=== PATIENT | male | born 1960 | race Caucasian/White ===

== ENCOUNTER 2019-07-25 20:00 | Outpatient (CLI) | payer MEDICARE, SELFPAY | END 2019-07-25 20:01 | disposition home or self-care (01) | LOC: SLEEP 07-26 11:54 | PROVIDERS: Visit Provider Nurse Practitioner Family | DX: G47.10 Hypersomnia, unspecified (principal); G47.33 Obstructive sleep apnea (adult) (pediatric); R09.02 Hypoxemia | CPT/HCPCS: 95810 ==

== ENCOUNTER 2019-09-05 20:00 | Outpatient (CLI) | payer MEDICARE, SELFPAY | END 2019-09-05 20:01 | disposition home or self-care (01) | LOC: SLEEP 09-06 09:02 | PROVIDERS: Visit Provider Nurse Practitioner Family | DX: G47.33 Obstructive sleep apnea (adult) (pediatric) (principal) | CPT/HCPCS: 95810; 95811 ==

== ENCOUNTER 2020-09-19 09:49 | Outpatient (CLI) | payer MEDICARE, SELFPAY ==
[2020-09-19 10:22] LABS: Basophils # 0.1 10^3/uL (0.0-0.1); Basophils % 0.6 %; Eosinophils # 0.1 10^3/uL (0.0-0.8); Eosinophils % 1.5 %; Hematocrit 50.8 % (42.0-52.0); Hemoglobin 17.3 g/dL (11.7-16.6); Lymphocytes # 2.7 10^3/uL (0.8-4.8); Mean Corpuscular HGB Conc 34.1 g/dL (30.0-36.0); Mean Corpuscular Hemoglobin 31.9 pg (28.0-34.0); Mean Corpuscular Volume 93.6 fL (80-94); Monocytes # 0.6 10^3/uL (0.2-0.9); Monocytes % 6.7 %; Neutrophils # 4.74 10^3/uL (1.8-7.7); Neutrophils % 57.8 %; Nucleated Red Blood Cells % 0 %; Platelet Count 218 10^3/cmm (130-400); Red Blood Count 5.43 10^6/uL (4.1-5.3); Red Cell Distribution Width 12.7 % (12.1-15.1); White Blood Count 8.2 10^3/uL (4.0-10.0)
[2020-09-19 10:41] LABS: INR 1.02 (0.8-1.2)
[2020-09-19 10:50] LABS: Blood Urea Nitrogen 14 mg/dL (8-23); Carbon Dioxide 25 mmol/L (22-29); Chloride 102 mmol/L (98-107); Glucose 254 mg/dL (65-115); Osmolality Calculated 293 mOsm/kg (285-295); Sodium 137 mmol/L (136-145)
== END 2020-09-19 09:50 | disposition home or self-care (01) ==
LOC: LAB 09:58
PROVIDERS: Visit Provider Internal Medicine
DX: R07.9 Chest pain, unspecified (principal); I25.10 Atherosclerotic heart disease of native coronary artery without angina pectoris
CPT/HCPCS: 36415; 80048; 85025; 85610; 87635

== ENCOUNTER 2020-09-25 07:12 | Day surgery (SDC) | payer MEDICARE, SELFPAY ==
[2020-09-25] VITALS (31 sets, daily range): BP systolic 115–168; BP diastolic 80–116; PULSE 62–87; RESP 13–33; TEMP 36.3–36.8; O2SAT 89–98; BMI 38.2
[2020-09-25] MEDS: diphenhydrAMINE 50 mg Capsule PO (07:20)
--- NOTE | 2020-09-25 07:30 | XACV_ITS ---
Exam Room: [facility] Ht: 168 cm Wt: 108 kg BSA: 2.29 m2 Gender: Male : 1960 Any Known Allergies: No known allergies Exam Priority: Routine Procedure(s): Procedure Description: Diagnostic procedure Procedure Description: PCI procedure Procedure Description: Left Heart Catheterization Procedure Description: Drug Eluting Coronary Stent Procedure Description: PTCA Diagnostic Cath Status: Elective Diagnostic Findings * LM has minor luminal irregularities. * RCA has patent stent, no significant stenosis. * Proximal LAD has a ONLINE MARKETER. pLAD to mLAD: Severe 100% stenosis, ALEXANDR: 0 flow. * Left circumflex artery is a large vessel. It has a proximal vessel , severe 70% stenosis. In the mid to distal LCx , there is a severe 80-90% stenosis. Proximal Circumflex Coronary Artery: Moderate 70% stenosis, ALEXANDR: 3 flow. * Ramus is a large sized vessel. It has a mid vessel 85% stenosis. In one of the branches of the ramus artery, distally there is a 80% stenosis. Ramus: Severe 85% stenosis, ALEXANDR: 3 flow. * Mid Circumflex Coronary Artery to Distal Circumflex Coronary Artery: Severe 90% stenosis, ALEXANDR: 3 flow. * Distal Circumflex Coronary Artery: Severe 90% stenosis, ALEXANDR: 3 flow. * Coronary angiography shows co-dominance. PCI Status: Elective PCI Indication: Staged PCI Interventional Findings * Procedure detail: We engaged left main artery using XB 3.5 guide catheter. IV heparin was used to maintain an ACT above 250 seconds. A 0.014 run-through guidewire was used to cross the left circumflex artery stenosis. Distal LCx lesion was balloon uncrossable. We performed predilation in the mid LCx with a 2.5 [id number] balloon. Same balloon was used to predilate the proximal LCx lesion. We then placed a 3.5x12mm resolute bridgette GONSALO in the proximal LCx. We then used guideliner to have more support and were able to cross the distal LCx lesion with a 1.41k47ny semi-compliant balloon. This was followed by dilation with a 2.00 semi compliant balloon. We then placed 2.5x30mm resolute bridgette stent in the mid to distal LCx. We then turned our attention to mid Ramus artery. We predilated the stenosis with 2.25 x 8 mm semicompliant balloon. This was followed by placement of 2.25 x 18 mm resolute [place] drug-eluting stent. Distal ramus artery was left for medical therapy. Brief attempt was made to revascularize the LAD ONLINE MARKETER, however patient had significant contrast load and we aborted the procedure to perform as a staged procedure later. At this time final angiogram was performed that showed excellent stent expansion, no residual stenosis and ALEXANDR-3 flow. Guidewire and guide catheter were removed. Hemostasis was obtained with TR band. Patient left the Overnight Stocker in a stable condition. * Proximal Circumflex Coronary Artery: 70% stenosis treated with AB TREK 2.50X12 RX BALLOON and MDT R BRIDGETTE 3.5X12 GONSALO. 0% residual stenosis, ALEXANDR: 3 flow. * Mid Circumflex Coronary Artery to Distal Circumflex Coronary Artery: 90% stenosis treated with Drug Eluting Stent. 0% residual stenosis, ALEXANDR: 3 flow. * Distal Circumflex Coronary Artery: 90% stenosis treated with AB MINI TREK 2.00X12 RX BALLOON, two AB MINI TREK 1.20X12 RX BALLOON, and MDT R BRIDGETTE 2.5X30 GONSALO. 0% residual stenosis, ALEXANDR: 3 flow. * Ramus: 85% stenosis treated with AB TREK 2.50X12 RX BALLOON and MDT R BRIDGETTE 2.75X15 GONSALO. 0% residual stenosis, ALEXANDR: 3 flow. Conclusions 1. There is severe coronary artery disease with multivessel disease. 2. LAD has ONLINE MARKETER. We will follow him clinically and attempt staged revascularization of LAD based on response to his medical therapy. 3. Proximal Circumflex Coronary Artery was treated with Balloon and Drug Eluting Stent. 4. Mid Circumflex Coronary Artery to Distal Circumflex Coronary Artery was treated with Drug Eluting Stent. 5. Distal Circumflex Coronary Artery was treated with three Balloon and Drug Eluting Stent. 6. Ramus was treated with Balloon and Drug Eluting Stent. Recommendations * Transfer to [facility]. * Aspirin and Plavix for atleast 1 year. * High intensity statin therapy. * Beta nimco. * Cardiology follow up in 4 weeks. We will follow clinically and if patient's symptoms do not respond to medical therapy, can schedule for staged revascularization attempt of the LAD ONLINE MARKETER. Interventional RX Recommendation: PCI w/o planned CABG Diagnostic RX Recommendation: PCI w/o planned CABG Clinical Evaluation EBL: 5mL-10mL Procedural Details Procedure Consent Obtained. Admit Source: In Patient. Pre-Procedure Time Out. Identified patient by full name and date of as verbalized by the patient/guarantor. Does the consent match the physician's order: Yes. Accurate & Complete Informed Consent: Yes. Inpatient/Outpatient History & Physical on Chart: Yes. If H&P is completed, is and addenduem needed: N/A; If yes, is the addendum complete: N/A. Visualize and Verify Site with Patient/Guarantor: N/A. Relevant Radiology Images available: N/A. Pre-op teaching completed and patient verbalized understanding. The risks, benefits, and alternatives of sedation and/or procedure were discussed by physician. The patient agrees to continue. Procedure started. Correct patient, site and procedure confirmed by cath team. PERRLA. Strong, equal hand sap pi architect bilaterally. Lungs clear x 5 lobes. IV Site on Arrival: 20 gauge in the right anticubital. Pre Procedural Pulses: bilateral dorsalis pedis was 3+. Pre Procedural Pulses: bilateral posterior tibial was 1+. Pre Procedural Pulses: bilateral radial was 3+. Oxygen started at 2liters/min via nasal canula. bilateral groins was prepped with chloroprep then draped in the usual sterile fashion. right radial was prepped with chloroprep then draped in the usual sterile fashion. Baseline sample Acquired. HR: 57 BPM. Physician notified. Physician arrived. Physician scrubbed in. Immediate Pre-Procedure Time Out. Correct Patient: Yes; Correct Procedure: Yes; Correct Site: Yes; Correct Patient Position: Yes; Correct Supplies: Yes; Dried Flammable Prep: Yes; Blood Products Available: N/A;. Lidocaine 1% infiltrated to the right radial. Arterial access obtained. A 5 armenian TIG catheter in over wire. Multiple views taken of left coronary artery. Catheter redirected to the RCA. Multiple views taken of right coronary artery. Catheter out. 6 armenian XB 3.5 guide catheter was inserted over the wire. Runthrough guidewire was advanced through the guide catheter to lesion in the mid Circ. Inflation number : 1 A AB TREK 2.50X12 RX BALLOON was prepped and advanced across the Mid CX , then inflated to 12 PAUL for 0:14 seconds. Inflation number: 2 The AB TREK 2.50X12 RX BALLOON was reinflated across the Mid CX, to 12 PAUL for 0:26 seconds. checking results. Balloon out. Inflation number : 1 A AB MINI TREK 2.00X12 RX BALLOON was prepped and advanced across the Dist CX , then inflated to 12 PAUL for 0:20 seconds. Balloon out. Inflation number : 1 A AB TREK 2.50X12 RX BALLOON was prepped and advanced across the Prox CX , then inflated to 12 PAUL for 0:21 seconds. Inflation number: 2 The AB TREK 2.50X12 RX BALLOON was reinflated across the Prox CX, to 12 PAUL for 0:13 seconds. Balloon out. Inflation Number : 3 A MDT R BRIDGETTE 3.5X12 GONSALO -Lot Number# [id number] exp date: 04-28-2022 was prepped and advanced across the Prox CX. The stent was deployed at 12 PAUL for 0:20 seconds. Inflation number: 4 The stent balloon was then re-inflated across the Prox CX to 12 PAUL for 0:16 seconds. Stent balloon out over wire. Results checked. ACT drawn. Results 302 seconds. Therapeutic limits - pre-heparin administration 90-150 seconds and monitoring heparin during a vascular procedure >250 seconds. 6F Guideliner inserted. LOT#[id number]. Inflation number : 2 A AB MINI TREK 1.20X12 RX BALLOON was prepped and advanced across the Dist CX , then inflated to 12 PAUL for 0:26 seconds. Inflation number: 3 The AB MINI TREK 1.20X12 RX BALLOON was reinflated across the Dist CX, to 0 PAUL for 0:21 seconds. Inflation number: 4 The AB MINI TREK 1.20X12 RX BALLOON was reinflated across the Dist CX, to 12 PAUL for 0:18 seconds. Balloon out. Inflation number: 5 The AB MINI TREK 2.00X12 RX BALLOON was reinflated across the Dist CX, to 12 PAUL for 0:35 seconds. Inflation number: 6 The AB MINI TREK 2.00X12 RX BALLOON was reinflated across the Dist CX, to 12 PAUL for 0:18 seconds. Balloon out. Inflation Number : 7 A MDT R BRIDGETTE 2.5X30 GONSALO -Lot Number# [id number] exp date: 04-28-2022 was prepped and advanced across the Dist CX. The stent was deployed at 14 PAUL for 0:25 seconds. Stent balloon out over wire. results checked. Runthrough guidewire was advanced through the guide catheter to lesion in the Ramus. Inflation number : 1 A AB TREK 2.50X12 RX BALLOON was prepped and advanced across the Ramus , then inflated to 12 PAUL for 0:23 seconds. Inflation number: 2 The AB TREK 2.50X12 RX BALLOON was reinflated across the Ramus, to 12 PAUL for 0:17 seconds. Inflation Number : 3 A MDT R BRIDGETTE 2.75X15 GONSALO -Lot Number# [id number] exp date: 05-01-2022 was prepped and advanced across the Ramus. The stent was deployed at 14 PAUL for 0:15 seconds. Stent balloon out over wire. Checking results. Runthrough guidewire was advanced through the guide catheter to lesion in the LAD. going in with 1.2x12 balloon for support. Balloon and wire out. Guide catheter out. TR band placed. Hemostasis obtained. Post Procedure: Pulses reassessed and unchanged. PERRLA. Strong, equal hand sap pi architect bilaterally. No VTE prophylaxis required. Contrast type used: Omnipaque 300 mgI/mL, 500 mL bottle. Contrast Material : Visipaque 381 ml. A TR Band was successful obtaining hemostatsis at the Right Radial artery insertion site. ACT drawn. Results 204 seconds. Therapeutic limits - pre-heparin administration 90-150 seconds and monitoring heparin during a vascular procedure >250 seconds. [facility] Clinical Fraility Score: 4: Vulnerable. Overnight Stocker Indications: Worsening Angina. Chest Pain Symptom Assessment: Typical Angina Symptoms. PCI Indication: STEMI - worsening angina. Post-op diagnosis: severe multivessel CAD. Cardiovascular Instability: No,. Vital chart was stopped. Medication's Wasted: Lidocaine 1% = 18 mL. Medication's Wasted: Nitro = 49.6 mg. Medication's Wasted: Heparin = 2000 units. Total IV fluids: 114 mL. Complications: none. Estimated blood loss: 5mL-10mL. Procedure completed. Patient transferred by wheelchair to 1st floor. Access Site Site: Right Radial artery Sheath Size: 6 Fr Hemostasis Method: TR Band Hemostasis Success: Successful Procedure Medications Start: 8:19 AM Stop: 8:19 AM Medication: Plavix Amount: 300 mg Route: P.O. Start: 8:19 AM Stop: 8:19 AM Medication: Versed Amount: 1 mg Route: I.V. Start: 8:19 AM Stop: 8:19 AM Medication: Fentanyl Amount: 50 mcg Route: I.V. Start: 8:27 AM Stop: 8:27 AM Medication: Nitrogylcerin Amount: 200 mcg Route: I.A. Start: 8:28 AM Stop: 8:28 AM Medication: Heparin Amount: 5000 units Route: I.V. Start: 8:36 AM Stop: 8:36 AM Medication: Heparin Amount: 5000 units Route: I.V. Start: 8:38 AM Stop: 8:38 AM Medication: Versed Amount: 1 mg Route: I.V. Start: 9:05 AM Stop: 9:05 AM Medication: Versed Amount: 1 mg Route: I.V. Start: 9:05 AM Stop: 9:05 AM Medication: Fentanyl Amount: 25 mcg Route: I.V. Start: 9:10 AM Stop: 9:10 AM Medication: Heparin Amount: 2000 units Route: I.V. Start: 9:18 AM Stop: 9:18 AM Medication: Nitrogylcerin Amount: 200 mcg Route: I.C. Start: 9:43 AM Stop: 9:43 AM Medication: Versed Amount: 1 mg Route: I.V. Start: 9:43 AM Stop: 9:43 AM Medication: Fentanyl Amount: 25 mcg Route: I.V. Start: 9:49 AM Stop: 9:49 AM Medication: Heparin Amount: 2000 units Route: I.V. I, the attending physician, have reviewed and verified all procedure medications. Yes, all medications given per verbal order History/Risk Factors Myocardial Infarction (MT): Yes Tobacco Use: Current/Recent(w/in 1 year) Prior Interventions PCI: Yes Date of PCI: 05/10/2019 Report Signatures Finalized by Edy Padilla MD on 10/07/2020 06:43 PM
--- NOTE | 2020-09-25 08:11 | PM.HP ---
Providers/Chief Complaint Admitting Physician: Edy Padilla MD Chief Complaint: Cardiac Catheterization History of Present Illness 60-year-old man with past medical history of smoking since age 10, obesity, degenerative joint disease and peptic ulcer disease, inferior wall AL in May 2019 for which he underwent PCI of RCA. He had significant residual disease in left circumflex, ramus and LAD which were not intervened upon. His LV systolic function was 40%. Plan was for staged intervention however it was not done and now continues to have chest pain. Mostly exertional but occasionally feels at rest as well. Plan for left heart cath with possible percutaneous coronary intervention Review of Systems General: Reports: 10 or more systems reviewed and unremarkable except in HPI and below Const: Denies: fever(s), chills, body aches or fatigue Eyes: Denies: change in vision or blurry vision ENMT: Denies: throat pain or odynophagia Card: Reports: chest pain (MILD RARE), swelling of feet/ankles, dyspnea on exertion and orthopnea; Denies: palpitations, irregular heart rhythm, lightheadedness or leg pain with exertion Resp: Reports: non-productive cough and wheezing; Denies: dyspnea or productive cough GI: Reports: heartburn; Denies: nausea or vomiting : Denies: difficulty urinating Musc: Reports: neck pain, back pain and joint pain Skin/Breast: Denies: rash or pruritus Neuro: Denies: headache(s), numbness in extremities, weakness in extremities, dizziness or vertigo Psych: Denies: anxiety or depression Arvind/Lymph: Denies: easy bruising or easy bleeding Medications/Allergies Home Medications Medication Instructions Recorded Confirmed Last Taken Type aspirin 81 mg tablet,delayed 81 mg PO QDAY 07/27/19 09/24/20 09/25/20 06:15 History release clopidogrel 75 mg tablet 75 mg PO QDAY #90 tab 12/13/19 09/24/20 09/25/20 06:15 Rx lisinopril 10 mg tablet 10 mg PO QDAY 90 Days #90 tab 12/13/19 09/24/20 09/25/20 06:15 Rx azithromycin 500 mg tablet 500 mg PO DAILY #5 tab 02/20/20 09/24/20 Unknown Rx atorvastatin 40 mg tablet 40 mg PO QDAY #90 tab 03/29/20 09/24/20 09/24/20 21:00 Rx nitroglycerin 0.4 mg sublingual 0.4 mg SUBLINGUAL Q5M PRN #25 each 08/02/20 09/24/20 Unknown Rx tablet metoprolol tartrate 50 mg tablet 50 mg PO BID #180 tab 08/08/20 09/24/20 09/25/20 06:15 Rx Allergies Allergy/AdvReac Type Severity Reaction Status Date / Time No Known Allergies Allergy Verified 08/02/20 15:59 PFSH Acute PFSH: Medical History ASHD (arteriosclerotic heart disease) DJD (degenerative joint disease), lumbar Myocardial infarction Obesity Sleep apnea Tobacco abuse Family History Father CAD (coronary artery disease) Mother Alzheimer disease Other Cancer Social History Smoking and tobacco status: current every day smoker cigarettes Alcohol intake: former Lives independently: Yes Household members: family Marital status: service: Yes status details: 6 YEARS branch: [employer] Current occupational status: disabled Current gender identity: Male Vitals/I&O/Wt Last Vital Signs Temp 97.3 F L 09/25/20 07:20 Pulse 71 09/25/20 07:20 Resp 16 09/25/20 07:20 BP 115/86 09/25/20 07:20 Pulse Ox 94 09/25/20 07:20 Weight last 48 hrs Weight 237 lb Physical Exam Narrative: EXAM NARRATIVE: GENERAL: Patient is alert, awake and oriented x3. [] NECK: No jugular vein distension. [] HEENT: No cyanosis. No icterus. No pallor. [] HEART: Regular S1 and S2. No murmur, rub or gallop. [] LUNGS: Clear to auscultate bilaterally. [] ABDOMEN: Soft, nontender and nondistended. Positive bowel sounds. No guarding, rebound or tenderness. [] CENTRAL NERVOUS SYSTEM: Grossly nonfocal. [] EXTREMITIES: Lower extremities with 1+ edema bilaterally. Pulses palpable in the lower extremities, both dorsalis pedis and posterior tibial. [] A&P Assessment and plan (1) Tobacco abuse: Status: Acute (2) ASHD (arteriosclerotic heart disease): Status: Acute (3) Chest pain: Status: Acute (4) Obesity: Status: Acute (5) Sleep apnea: Status: Acute Patient has known residual severe coronary artery disease that was not intervened upon in the past. We will plan to perform left heart cath with percutaneous coronary intervention today. We will need to reevaluate anatomy today as prior angiogram has been more than a year old. Risks and benefits of the procedure have been described. Risks including bleeding, infection, abnormal heart rhythm, abnormal kidney function, heart attack, stroke or have been described. Patient understands the risks and benefits and wants to proceed with the procedure. Attestations Medical Necessity Statement*: Care not expected to cross 2 midnights. Patient is here for outpatient left heart cath with possible percutaneous coronary intervention. 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
--- NOTE | 2020-09-25 10:29 | PC.CHAP ---
Pastoral Care Encounter/Spiritual Assessment Type of Contact [] Declined guncotton packer visit [] Patient/Family/Request visit [] Outpatient visit [] Follow-up visit [] Physician referral [] Code/Alert [x] Routine visit [] Staff referral [] Actively dying [] Patient sleeping [] Family support [] [] Out of room [] Palliative care [] [] Receiving care in room [] Pre-surgical visit [] Trauma [] Long length of stay [] ICU visit [] Other: Relational/Emotional Strength [] Patient feels connected with others/family/visitors/staff [] Distress [] Loneliness/isolation [] Abandonment Spirituality of Patient [] Person of Tanja [] Attends Confucianism of their Tanja [] Believes in Prayer [] Reads Bible or Jew materials [] There are Spiritual issues to be addressed 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 Interventions [x] Prayer [] Active listening [] Non-anxious presence [] Spiritual/emotional support [] Crisis/trauma care [] Spiritual counseling [] Bereavement support [] Provided bereavement packet [] Provided Bible/devotional materials [] Provided toy/stuffed animal, coloring book to patient or family member [] Provided Communion [] Anointing/Alto [] Salvation [x] Completed spiritual assessment [] Other: Impact on Illness or Injury [] Angry [] Fearful [] Anxious [] Often cries [] Exhaustion [] Unable to work [] Unable to attend advent [] Unable to walk/stand [] Unable to read [] Unable to drive [] Unable to eat/drink [] Unable to sleep [] Unable to be with family [] Patient intubated [] Other: Summary just out of surgery.. very groggy... but prayed for fast recovery Time spent with patient 5 min
--- NOTE | 2020-09-25 10:30 | PC.NURSE ---
After transferring patient from wheelchair to be swelling noted above TR band. I applied manual pressure and reduced the swelling while Micky obtained and applied a second TR band above the present band.
[2020-09-25] MEDS: nicotine 21 mg Patch 1 PATCH TRANSDERMA (15:11)
[2020-09-25] MEDS: fentaNYL 50 mcg/mL INJ 2mL IVP ×2 (15:12→20:53)
--- NOTE | 2020-09-25 15:30 | PC.NURSE ---
Call placed to [facility]. Left msg for Dr. Padilla regarding my concern for patient's wrist Doctor called back almost immediately. I reported patient has some bruising and swelling of the right wrist and forearm. Palpable pulses ( radial & ulnar) confirmed with doppler. Dr. Padilla came to the unit and assessed patient. No new orders. Will continue to monitor.
[2020-09-25] MEDS: sodium chloride 0.9% 1,000 ML 50 ML IV (17:44)
[2020-09-25] MEDS: atorvastatin 40 mg Tablet PO (20:52)
[2020-09-25] MEDS: ALPRAZolam 0.25 mg Tablet PO (20:52)
[2020-09-25] MEDS: metoprolol tartrate 50 mg Tablet PO (20:53)
[2020-09-26 00:37] VITALS: BP 127/91; PULSE 74; RESP 23; TEMP 36.8; O2SAT 94
[2020-09-26 04:36] VITALS: BP 134/88; PULSE 79; RESP 32; TEMP 36.6
[2020-09-26 04:53] LABS: Basophils % 0.2 %; Eosinophils # 0.1 10^3/uL (0.0-0.8); Eosinophils % 1.7 %; Hematocrit 45.8 % (42.0-52.0); Hemoglobin 15.1 g/dL (11.7-16.6); Lymphocytes # 2.8 10^3/uL (0.8-4.8); Lymphocytes % 34.8 %; Mean Corpuscular Hemoglobin 31.7 pg (28.0-34.0); Mean Platelet Volume 10.1 fL (7.4-10.4); Monocytes # 0.6 10^3/uL (0.2-0.9); Monocytes % 7.5 %; Neutrophils # 4.45 10^3/uL (1.8-7.7); Neutrophils % 55.4 %; Nucleated Red Blood Cells % 0 %; Platelet Count 167 10^3/cmm (130-400); Red Blood Count 4.77 10^6/uL (4.1-5.3); Red Cell Distribution Width 12.8 % (12.1-15.1)
[2020-09-26 05:10] VITALS: PULSE 79
[2020-09-26 05:18] LABS: Blood Urea Nitrogen 9 mg/dL (8-23); Calcium 8.2 mg/dL (8.5-10.5); Carbon Dioxide 25 mmol/L (22-29); Chloride 104 mmol/L (98-107); Glomerular Filtration Rate 114.3 mL/min (90-130); Glucose 193 mg/dL (65-115); Osmolality Calculated 286 mOsm/kg (285-295); Sodium 136 mmol/L (136-145)
--- NOTE | 2020-09-26 07:19 | PM.SDS ---
Short Stay Summary Providers Date of Admit/Discharge: 10/03/20 Attending Provider: Edy Padilla M.D Chief Complaint: Cardiac Catheterization HPI History of Present Illness 60-year-old man with past medical history of smoking since age 10, obesity, degenerative joint disease and peptic ulcer disease, inferior wall DC in May 2019 for which he underwent PCI of RCA. He had significant residual disease in left circumflex, ramus and LAD which were not intervened upon. His LV systolic function was 40%. Plan was for staged intervention. Patient continues to have chest pain. Mostly exertional but occasionally feels at rest as well. Plan for left heart cath with possible percutaneous coronary intervention Review of Systems General: Reports: 10 or more systems reviewed and unremarkable except in HPI and below Const: Denies: fever(s), chills, body aches or fatigue Eyes: Denies: change in vision or blurry vision ENMT: Denies: throat pain or odynophagia Card: Reports: chest pain (MILD RARE), swelling of feet/ankles, dyspnea on exertion and orthopnea; Denies: palpitations, irregular heart rhythm, lightheadedness or leg pain with exertion Resp: Reports: non-productive cough and wheezing; Denies: dyspnea or productive cough GI: Reports: heartburn; Denies: nausea or vomiting : Denies: difficulty urinating Musc: Reports: neck pain, back pain and joint pain Skin/Breast: Denies: rash or pruritus Neuro: Denies: headache(s), numbness in extremities, weakness in extremities, dizziness or vertigo Psych: Denies: anxiety or depression Arvind/Lymph: Denies: easy bruising or easy bleeding Home Meds/Allergies Home Medications and Allergies Home Medications Medication Instructions Recorded Confirmed Type aspirin 81 mg tablet,delayed 81 mg PO QDAY 07/27/19 09/24/20 History release Allergies Allergy/AdvReac Type Severity Reaction Status Date / Time No Known Allergies Allergy Verified 08/02/20 15:59 PFSH Acute PFSH: Medical History ASHD (arteriosclerotic heart disease) DJD (degenerative joint disease), lumbar Myocardial infarction Obesity Sleep apnea Tobacco abuse Family History Father CAD (coronary artery disease) Mother Alzheimer disease Other Cancer Social History Smoking and tobacco status: current every day smoker cigarettes Alcohol intake: former Lives independently: Yes Household members: family Marital status: service: Yes status details: 6 YEARS branch: [employer] Current occupational status: disabled Current gender identity: Male Vitals/I&O/Wt Last Vital Signs Temp 98 F 09/26/20 04:36 Pulse 79 09/26/20 05:10 Resp 32 H 09/26/20 04:36 BP 134/88 09/26/20 04:36 Pulse Ox 94 09/26/20 00:37 09/25/20 09/26/20 09/26/20 22:59 06:59 14:59 Intake Total 460 / 700 797.5 / 1497.5 Output Total 300 / 300 Balance 160 / 400 797.5 / 1197.5 Weight last 48 hrs Weight 237 lb Physical Exam Narrative: EXAM NARRATIVE: GENERAL: Patient is alert, awake and oriented x3. [] NECK: No jugular vein distension. [] HEENT: No cyanosis. No icterus. No pallor. [] HEART: Regular S1 and S2. No murmur, rub or gallop. [] LUNGS: Clear to auscultate bilaterally. [] ABDOMEN: Soft, nontender and nondistended. Positive bowel sounds. No guarding, rebound or tenderness. [] CENTRAL NERVOUS SYSTEM: Grossly nonfocal. [] EXTREMITIES: Lower extremities with 1+ edema bilaterally. Pulses palpable in the lower extremities, both dorsalis pedis and posterior tibial. [] Hospital Course Hospital Course 60-year-old man with past medical history of smoking since age 10, obesity, degenerative joint disease and peptic ulcer disease, inferior wall DC in May 2019 for which he underwent PCI of RCA. He had significant residual disease in left circumflex, ramus and LAD which were not intervened upon. His LV systolic function was 40%. Plan was for staged intervention however it was not done and now continues to have chest pain. Mostly exertional but occasionally feels at rest as well. Patient left heart cath showed severe disease of ramus and LCx that he underwent stenting for (For procedure detail please refer to procedure report). Patient stayed stable night of the procedure. He was stable at time of discharge and was sent home on plavix and aspirin. 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 request for service Routin e Exams 09/25/20 07:30 Taken Diagnoses at Discharge Discharge Diagnosis (1) Tobacco abuse: Status: Acute (2) ASHD (arteriosclerotic heart disease): Status: Acute (3) Chest pain: Status: Acute (4) Obesity: Status: Acute (5) Sleep apnea: Status: Acute Discharge Plan Discharge Patient Disposition: Home Condition: Stable Prescriptions: New clopidogrel 75 mg Tablet 75 mg PO DAILY Qty: 90 RF: 3 Continued nitroglycerin 0.4 mg tablet, sublingual 0.4 mg sublingual Q5M PRN (Reason: chest pain) Qty: 25 RF: 3 aspirin [Adult Low Dose Aspirin] 81 mg tablet,delayed release (DR/EC) 81 mg PO QDAY RF: 0 lisinopril 10 mg tablet 10 mg PO QDAY 90 Days Qty: 90 RF: 3 atorvastatin 40 mg tablet 40 mg PO QDAY Qty: 90 RF: 3 metoprolol tartrate 50 mg tablet 50 mg PO BID Qty: 180 RF: 3 Discontinued azithromycin [Zithromax] 500 mg tablet 500 mg PO DAILY Qty: 5 RF: 0 clopidogrel 75 mg tablet 75 mg PO QDAY Qty: 90 RF: 3 Discharge Orders: Discharge Order (Routine); Ordered 09/26/20 Ordered By: Edy Padilla Referrals: Edy Padilla M.D [Physician] - 1 month (Please follow-up with Dr. Padilla on Thursday. November 05 at 3:00P.M. If you have any questions or need ot reschedule. Please call ) Halley Loya FNP [Nurse Practitioner] - 7-10 days (Please follow-up with Halley Loya on October 04 at 9:30A.M. If you have any questions or need top reschedule. Please call ) Discharge Diet: Cardiac Discharge Activity: Increase activity as tolerated Patient Instructions: Clopidogrel (By mouth), Left Heart Catheterization (DC), Coronary Angioplasty (DC), Chest Pain Stoplight, Post Angiogram Home Care Instructions Activity Restrictions/Additional Instructions: Please do not lift more than 5 pounds of weight for the next 5 days Attestations Medical Necessity Statement*: Care not expected to cross 2 mid nights. 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
[2020-09-26 07:29] VITALS: BP 125/79; PULSE 84; RESP 22; TEMP 36.7; O2SAT 93
[2020-09-26] MEDS: nicotine 21 mg Patch 1 PATCH TRANSDERMA (08:09)
[2020-09-26] MEDS: lisinopril 10 mg Tablet PO (08:09)
[2020-09-26] MEDS: aspirin 81 mg EC Tablet PO (08:09)
[2020-09-26] MEDS: clopidogrel 75 mg Tablet PO (08:09)
[2020-09-26] MEDS: metoprolol tartrate 50 mg Tablet PO (08:09)
[2020-09-26 08:50] VITALS: BP 125/79; PULSE 84; RESP 22; TEMP 36.7; O2SAT 93
--- NOTE | 2020-09-26 09:22 | PC.CHAP ---
Pastoral Care Encounter/Spiritual Assessment Type of Contact [] Declined surgery technician visit [] Patient/Family/Request visit [] Outpatient visit [] Follow-up visit [] Physician referral [] Code/Alert [x] Routine visit [] Staff referral [] Actively dying [] Patient sleeping [] Family support [] [] Out of room [] Palliative care [] [] Receiving care in room [] Pre-surgical visit [] Trauma [] Long length of stay [] ICU visit [] Other: Relational/Emotional Strength [] Patient feels connected with others/family/visitors/staff [] Distress [] Loneliness/isolation [] Abandonment Spirituality of Patient [] Person of Tanja [] Attends Advent of their Tanja [] Believes in Prayer [] Reads Bible or Gnosticism materials [] There are Spiritual issues to be addressed Stabber Interventions [x] Prayer [x] Active listening [x] Non-anxious presence [x] Spiritual/emotional support [] Crisis/trauma care [] Spiritual counseling [] Bereavement support [] Provided bereavement packet [] Provided Bible/devotional materials [] Provided toy/stuffed animal, coloring book to patient or family member [] Provided Communion [] Anointing/[place] [] Salvation [x] Completed spiritual assessment [] Other: Impact on Illness or Injury [] Angry [] Fearful [] Anxious [] Often cries [] Exhaustion [] Unable to work [] Unable to attend methodist [] Unable to walk/stand [] Unable to read [] Unable to drive [] Unable to eat/drink [] Unable to sleep [] Unable to be with family [] Patient intubated [] Other: Summary patient preparing to go home... dressed and removing monitors..... Time spent with patient 10 min
== END 2020-09-26 10:08 | disposition home or self-care (01) ==
LOC: CCL 07:13 → CSU 08:06
PROVIDERS: Visit Provider Internal Medicine
DX: I25.10 Atherosclerotic heart disease of native coronary artery without angina pectoris (principal); F17.210 Nicotine dependence, cigarettes, uncomplicated; M19.90 Unspecified osteoarthritis, unspecified site; E66.9 Obesity, unspecified; Z68.38 Body mass index [BMI] 38.0-38.9, adult; Z79.82 Long term (current) use of aspirin; I25.2 Old myocardial infarction; G47.30 Sleep apnea, unspecified
CPT/HCPCS: 36415; 80048; 85025; 85347; 93454; C1725; C1769; C1874; C1887; C1894; C9600; C9601; J1644; J2250; J3010; J3490; J7030; Q0163; Q9967

== ENCOUNTER → 2020-10-04 10:19 | Outpatient (BNVA) | payer MEDICARE, SELFPAY | PROVIDERS: Visit Provider Nurse Practitioner Family | DX: I25.10 Atherosclerotic heart disease of native coronary artery without angina pectoris (principal) | CPT/HCPCS: 80048 ==

== ENCOUNTER → 2021-04-09 18:04 | Outpatient (BNVA) | payer MEDICARE, SELFPAY | PROVIDERS: Visit Provider Family Medicine | DX: M54.6 Pain in thoracic spine (principal); G89.29 Other chronic pain; M54.50 Low back pain, unspecified; M25.551 Pain in right hip; E78.2 Mixed hyperlipidemia; I10 Essential (primary) hypertension; Z23 Encounter for immunization; Z12.5 Encounter for screening for malignant neoplasm of prostate; J01.00 Acute maxillary sinusitis, unspecified | CPT/HCPCS: 80053; 80061; 83721; 84443; 85025; G0103 ==

== ENCOUNTER 2021-04-10 10:14 | Outpatient (CLI) | payer MEDICARE, SELFPAY ==
--- NOTE | 2021-04-10 10:23 | XR_ITS ---
WS: [id number] XR lumbar spine 6V w f/e [id number] REASON FOR EXAM: M54.50 - Low back pain, unspecified FINDINGS: No significant compression deformity or other focal vertebral body abnormality. The intervertebral disc spaces are relatively well preserved. Mild narrowing of the L5-S1 disc space. No significant listhesis identified. No abnormal movement with flexion and extension. Significant degenerative change in the facet joints at L4-L5 and L5-S1. XR/XR lumbar spine 6V w f/e [id number] IMPRESSION: Degenerative spondylosis as above.
--- NOTE | 2021-04-10 10:23 | XR_ITS ---
WS: [id number] RIGHT HIP HISTORY: M25.551 - Pain in right hip COMPARISON: None available. Right hip: No acute fracture or dislocation. Mild narrowing of the hip joint. Moderate osteophytic ri dging around the acetabulum. Cortical irregularity along the surface of the femoral head from loss of cartilage. Mild narrowing of the SI joint. No soft tissue abnormality. XR/XR hip RT 2-3V wo/w pel* [id number] IMPRESSION: 1. No hip fracture. 2. Mild osteoarthritic changes at the RIGHT hip joint.
--- NOTE | 2021-04-10 10:23 | XR_ITS ---
WS: [id number] XR thoracic spine 3V* [id number] REASON FOR EXAM: M54.6 - Pain in thoracic spine FINDINGS: Normal thoracic spine alignment. No significant compression deformity or other focal vertebral body abnormality. The intervertebral disc spaces are relatively well-preserved. No soft tissue abnormality. XR/XR thoracic spine 3V* [id number] IMPRESSION: No significant thoracic spine abnormality.
== END 2021-04-10 10:15 | disposition home or self-care (01) ==
LOC: RAD 10:19
PROVIDERS: PCP Family Medicine; Visit Provider Family Medicine
DX: M25.551 Pain in right hip (principal); M54.50 Low back pain, unspecified; M54.6 Pain in thoracic spine; G89.29 Other chronic pain; M47.816 Spondylosis without myelopathy or radiculopathy, lumbar region
CPT/HCPCS: 72072; 72114; 73502

== ENCOUNTER → 2021-04-18 09:47 | Outpatient (BNVA) | payer MEDICARE, SELFPAY | PROVIDERS: PCP Family Medicine; Referring Provider Family Medicine; Visit Provider Anesthesiology Pain Medicine | DX: G89.29 Other chronic pain (principal); R73.9 Hyperglycemia, unspecified; M51.16 Intervertebral disc disorders with radiculopathy, lumbar region; M47.816 Spondylosis without myelopathy or radiculopathy, lumbar region; M79.604 Pain in right leg; F17.210 Nicotine dependence, cigarettes, uncomplicated | CPT/HCPCS: 36416; 82962; 83036; 99204 ==

== ENCOUNTER 2021-05-13 15:12 | Outpatient (CLI) | payer MEDICARE, SELFPAY ==
--- NOTE | 2021-05-13 16:00 | MR_ITS ---
WS: [id number] MRI LUMBAR SPINE NONCONTRAST HISTORY: M51.16 - Intervertebral disc disorders with radiculopathy... COMPARISON: None available. TECHNIQUE: Sagittal and axial multisequence imaging is submitted. Mild straightening and LEFT curvature of the lumbar spine. Posterior alignment is normal. Mild disc space desiccation at L4-5 and L5-S1. No fractures or marrow edema. Conus terminates normally at L1-2 disc level. L1-L2: Normal. L2-L3: Very slight asymmetric disc bulging to the LEFT. No stenosis. L3-L4: Mild annular disc bulging slightly asymmetric to the LEFT. No disc protrusion or stenosis. Mil d bilateral facet arthritis. L4-L5: Moderate annular disc bulging with moderate ligamentum flavum disease and facet arthritis. Fac et disease and disc disease encroaching into the thecal sac. There is at least moderate central and b ilateral foraminal stenosis. There is significant subarticular recess stenosis causing deformity and stenosis of the subarticular recesses bilaterally. Significant deformity of the L5 traversing nerve r oots. L5-S1: Mild annular disc bulging with a central disc protrusion. No contact on the nerve roots. There is very mild narrowing and encroachment upon the LEFT S1 traversing nerve root with no displacement. Very mild foraminal narrowing secondary to facet arthritis. Mild ectasia and dilatation of aorta to 2.8 cm. No significant aneurysmal dilatation. MR/MR lumbar spine wo con* [id number] IMPRESSION: 1. Moderate central and bilateral foraminal stenosis at L4-5. 2. Significant narrowing and encroachment into the subarticular recesses at L4 -5 with displacement of the L5 traversing nerve roots. 3. Mild disc bulging and central disc protrusion at L5-S1 with only minimal en croachment upon the traversing LEFT S1 nerve root. 4. Severe facet joint arthritis at L4-5 and moderate at L5-S1.
== END 2021-05-13 15:13 | disposition home or self-care (01) ==
LOC: RADSHAW 15:16
PROVIDERS: PCP Family Medicine; Visit Provider Anesthesiology Pain Medicine
DX: M51.16 Intervertebral disc disorders with radiculopathy, lumbar region (principal); M48.061 Spinal stenosis, lumbar region without neurogenic claudication; M51.26 Other intervertebral disc displacement, lumbar region; M47.816 Spondylosis without myelopathy or radiculopathy, lumbar region; M47.817 Spondylosis without myelopathy or radiculopathy, lumbosacral region
CPT/HCPCS: 72148

== ENCOUNTER → 2021-05-22 11:07 | Outpatient (BNVA) | payer MEDICARE, SELFPAY | PROVIDERS: PCP Family Medicine; Visit Provider Anesthesiology Pain Medicine | DX: M51.16 Intervertebral disc disorders with radiculopathy, lumbar region (principal); M47.816 Spondylosis without myelopathy or radiculopathy, lumbar region; F12.90 Cannabis use, unspecified, uncomplicated | CPT/HCPCS: 99214 ==

== ENCOUNTER → 2021-06-10 14:05 | Outpatient (BNVA) | payer MEDICARE, SELFPAY | PROVIDERS: PCP Family Medicine; Visit Provider Anesthesiology Pain Medicine | DX: Z01.812 Encounter for preprocedural laboratory examination (principal); E11.9 Type 2 diabetes mellitus without complications; M54.16 Radiculopathy, lumbar region | CPT/HCPCS: 64483; 64484; J1100; J3490 ==

== ENCOUNTER → 2021-06-24 10:54 | Outpatient (BNVA) | payer MEDICARE, SELFPAY | PROVIDERS: PCP Family Medicine; Visit Provider Anesthesiology Pain Medicine | DX: G89.29 Other chronic pain (principal); M51.17 Intervertebral disc disorders with radiculopathy, lumbosacral region; M51.16 Intervertebral disc disorders with radiculopathy, lumbar region; M47.816 Spondylosis without myelopathy or radiculopathy, lumbar region; M47.812 Spondylosis without myelopathy or radiculopathy, cervical region; F17.210 Nicotine dependence, cigarettes, uncomplicated | CPT/HCPCS: 72050; 99214 ==

== ENCOUNTER 2021-06-24 11:25 | Outpatient (CLI) | payer MEDICARE, SELFPAY ==
--- NOTE | 2021-06-24 11:29 | XR_ITS ---
WS: [id number] Exam: XR cervical spine 4-5V [id number] Date/Time of Exam: 06/24/2021 11:29 AM Reason For Exam: M47.812 - Spondylosis without myelopathy or radiculopathy... No acute fracture or dislocation. There is straightening. The odontoid is intact. Anterior bridging o steophytes at C3-4. The bony neuroforamina are grossly patent. Anterior paraspinal soft tissue struct ures are unremarkable. XR/XR cervical spine 4-5V [id number] IMPRESSION: 1. No fracture or malalignment. 2. Straightening and spondylosis as noted above.
== END 2021-06-24 11:26 | disposition home or self-care (01) ==
PROVIDERS: PCP Family Medicine; Visit Provider Anesthesiology Pain Medicine
DX: M47.812 Spondylosis without myelopathy or radiculopathy, cervical region (principal)
CPT/HCPCS: 72050

== ENCOUNTER → 2021-07-17 10:51 | Outpatient (BNVA) | payer MEDICARE, SELFPAY | PROVIDERS: PCP Family Medicine; Visit Provider Anesthesiology Pain Medicine | DX: G89.29 Other chronic pain (principal); M51.16 Intervertebral disc disorders with radiculopathy, lumbar region; M47.816 Spondylosis without myelopathy or radiculopathy, lumbar region; M51.17 Intervertebral disc disorders with radiculopathy, lumbosacral region; M54.2 Cervicalgia | CPT/HCPCS: 99214 ==

== ENCOUNTER 2021-07-31 06:00 | Outpatient (RCR) | payer MEDICARE, SELFPAY | END 2021-08-05 23:59 | disposition home or self-care (01) | LOC: TPT 06:00 | PROVIDERS: PCP Family Medicine; Referring Provider Anesthesiology Pain Medicine; Visit Provider Anesthesiology Pain Medicine | DX: M54.2 Cervicalgia (principal); G89.29 Other chronic pain | CPT/HCPCS: 97110; 97163 ==

== ENCOUNTER 2021-08-06 06:00 | Outpatient (RCR) | payer MEDICARE, SELFPAY | END 2021-09-02 23:59 | disposition home or self-care (01) | LOC: TPT 06:00 | PROVIDERS: PCP Family Medicine; Referring Provider Anesthesiology Pain Medicine; Visit Provider Anesthesiology Pain Medicine | DX: M54.2 Cervicalgia (principal); G89.29 Other chronic pain | CPT/HCPCS: 97110; 97140 ==

== ENCOUNTER 2021-09-03 06:00 | Outpatient (RCR) | payer MEDICARE, SELFPAY | END 2021-10-03 23:59 | disposition home or self-care (01) | LOC: TPT 06:00 | PROVIDERS: PCP Family Medicine; Referring Provider Anesthesiology Pain Medicine; Visit Provider Anesthesiology Pain Medicine | DX: M54.2 Cervicalgia (principal); G89.29 Other chronic pain | CPT/HCPCS: 97110; 97140 ==

== ENCOUNTER 2021-10-04 06:00 | Outpatient (RCR) | payer MEDICARE, SELFPAY | END 2021-11-02 23:59 | disposition home or self-care (01) | LOC: TPT 06:00 | PROVIDERS: PCP Family Medicine; Referring Provider Anesthesiology Pain Medicine; Visit Provider Anesthesiology Pain Medicine | DX: M54.2 Cervicalgia (principal); G89.29 Other chronic pain | CPT/HCPCS: 97110; 97140 ==

== ENCOUNTER 2021-11-03 06:00 | Outpatient (RCR) | payer MEDICARE, SELFPAY | END 2021-11-06 23:59 | disposition home or self-care (01) | LOC: TPT 06:00 | PROVIDERS: PCP Family Medicine; Referring Provider Anesthesiology Pain Medicine; Visit Provider Anesthesiology Pain Medicine | DX: G89.29 Other chronic pain (principal); M54.2 Cervicalgia | CPT/HCPCS: 97110 ==

== ENCOUNTER → 2021-11-05 09:26 | Outpatient (BNVA) | payer MEDICARE, SELFPAY | PROVIDERS: PCP Family Medicine; Visit Provider Anesthesiology Pain Medicine | DX: G89.29 Other chronic pain (principal); M51.17 Intervertebral disc disorders with radiculopathy, lumbosacral region; M51.16 Intervertebral disc disorders with radiculopathy, lumbar region; M47.816 Spondylosis without myelopathy or radiculopathy, lumbar region; M54.2 Cervicalgia; F17.210 Nicotine dependence, cigarettes, uncomplicated | CPT/HCPCS: 99213 ==

== ENCOUNTER → 2021-12-25 17:15 | Outpatient (BNVA) | payer MEDICARE, SELFPAY | PROVIDERS: PCP Family Medicine; Visit Provider Family Medicine | DX: E11.9 Type 2 diabetes mellitus without complications (principal); E78.2 Mixed hyperlipidemia; I10 Essential (primary) hypertension; Z12.5 Encounter for screening for malignant neoplasm of prostate; Z72.0 Tobacco use | CPT/HCPCS: 80053; 80061; 83036; 84443; 85025; G0103 ==

== ENCOUNTER → 2022-03-26 09:37 | Outpatient (BNVA) | payer MEDICARE, SELFPAY | PROVIDERS: PCP Family Medicine; Visit Provider Anesthesiology Pain Medicine | DX: M16.9 Osteoarthritis of hip, unspecified (principal); M51.17 Intervertebral disc disorders with radiculopathy, lumbosacral region; G89.29 Other chronic pain; M51.16 Intervertebral disc disorders with radiculopathy, lumbar region; M47.816 Spondylosis without myelopathy or radiculopathy, lumbar region; M54.2 Cervicalgia; F17.210 Nicotine dependence, cigarettes, uncomplicated | CPT/HCPCS: 73522; 99214 ==

== ENCOUNTER → 2022-05-02 13:58 | Outpatient (BNVA) | payer MEDICARE, SELFPAY | PROVIDERS: PCP Family Medicine; Visit Provider Family Medicine | DX: E11.9 Type 2 diabetes mellitus without complications (principal); E78.2 Mixed hyperlipidemia; I10 Essential (primary) hypertension; T78.40XA Allergy, unspecified, initial encounter | CPT/HCPCS: 80053; 80061; 83036; 84443 ==

== ENCOUNTER → 2022-07-09 09:49 | Outpatient (BNVA) | payer MEDICARE, SELFPAY | PROVIDERS: PCP Family Medicine; Visit Provider Anesthesiology Pain Medicine | DX: G89.29 Other chronic pain (principal); M51.17 Intervertebral disc disorders with radiculopathy, lumbosacral region; M51.16 Intervertebral disc disorders with radiculopathy, lumbar region; M47.816 Spondylosis without myelopathy or radiculopathy, lumbar region; M25.551 Pain in right hip; M25.552 Pain in left hip | CPT/HCPCS: 99214 ==

== ENCOUNTER → 2022-10-07 09:55 | Outpatient (BNVA) | payer MEDICARE, SELFPAY | PROVIDERS: PCP Family Medicine; Visit Provider Anesthesiology Pain Medicine | DX: G89.29 Other chronic pain (principal); M51.17 Intervertebral disc disorders with radiculopathy, lumbosacral region; M51.16 Intervertebral disc disorders with radiculopathy, lumbar region; M47.816 Spondylosis without myelopathy or radiculopathy, lumbar region; M25.551 Pain in right hip; M54.2 Cervicalgia; M25.552 Pain in left hip | CPT/HCPCS: 99214 ==

== ENCOUNTER → 2022-10-21 13:33 | Outpatient (BNVA) | payer MEDICARE, SELFPAY | PROVIDERS: PCP Family Medicine; Visit Provider Anesthesiology Pain Medicine | DX: M16.11 Unilateral primary osteoarthritis, right hip (principal) | CPT/HCPCS: 20610; 77002; J1030; J3490 ==

== ENCOUNTER → 2022-11-04 09:37 | Outpatient (BNVA) | payer MEDICARE, SELFPAY | PROVIDERS: PCP Family Medicine; Visit Provider Anesthesiology Pain Medicine | DX: G89.29 Other chronic pain (principal); M54.2 Cervicalgia; M51.16 Intervertebral disc disorders with radiculopathy, lumbar region; M47.816 Spondylosis without myelopathy or radiculopathy, lumbar region; M16.0 Bilateral primary osteoarthritis of hip | CPT/HCPCS: 99213 ==

== ENCOUNTER → 2022-12-08 09:45 | Outpatient (BNVA) | payer MEDICARE, SELFPAY | PROVIDERS: PCP Family Medicine; Visit Provider Family Medicine | DX: E78.2 Mixed hyperlipidemia (principal); E11.9 Type 2 diabetes mellitus without complications; M51.16 Intervertebral disc disorders with radiculopathy, lumbar region; I10 Essential (primary) hypertension | CPT/HCPCS: 80053; 80061; 83036; 84443; 85025 ==

== ENCOUNTER → 2023-02-05 10:45 | Outpatient (BNVA) | payer MEDICARE, SELFPAY | PROVIDERS: PCP Family Medicine; Visit Provider Anesthesiology Pain Medicine | DX: M47.816 Spondylosis without myelopathy or radiculopathy, lumbar region (principal); M51.16 Intervertebral disc disorders with radiculopathy, lumbar region; I71.40 Abdominal aortic aneurysm, without rupture, unspecified; G89.29 Other chronic pain; M54.2 Cervicalgia; M16.0 Bilateral primary osteoarthritis of hip; M51.17 Intervertebral disc disorders with radiculopathy, lumbosacral region; M25.551 Pain in right hip; M25.552 Pain in left hip | CPT/HCPCS: 72110; 99214 ==

== ENCOUNTER → 2023-05-11 09:40 | Outpatient (BNVA) | payer MEDICARE, SELFPAY | PROVIDERS: PCP Family Medicine; Visit Provider Anesthesiology Pain Medicine | DX: M51.17 Intervertebral disc disorders with radiculopathy, lumbosacral region (principal); M54.2 Cervicalgia; G89.29 Other chronic pain; M51.16 Intervertebral disc disorders with radiculopathy, lumbar region; M47.816 Spondylosis without myelopathy or radiculopathy, lumbar region; M16.0 Bilateral primary osteoarthritis of hip | CPT/HCPCS: 99214 ==

== ENCOUNTER → 2023-06-17 12:30 | Outpatient (BNVA) | payer MEDICARE, SELFPAY | PROVIDERS: PCP Family Medicine; Visit Provider Family Medicine | DX: E11.9 Type 2 diabetes mellitus without complications (principal); M51.17 Intervertebral disc disorders with radiculopathy, lumbosacral region; I10 Essential (primary) hypertension; E78.5 Hyperlipidemia, unspecified; E78.2 Mixed hyperlipidemia; E11.42 Type 2 diabetes mellitus with diabetic polyneuropathy | CPT/HCPCS: 80053; 80061; 83036; 84443; 85025 ==

== ENCOUNTER → 2023-07-09 08:49 | Outpatient (BNVA) | payer MEDICARE, SELFPAY | PROVIDERS: PCP Family Medicine; Visit Provider Anesthesiology Pain Medicine | DX: G89.29 Other chronic pain; M51.16 Intervertebral disc disorders with radiculopathy, lumbar region; M47.816 Spondylosis without myelopathy or radiculopathy, lumbar region; M25.551 Pain in right hip; M16.0 Bilateral primary osteoarthritis of hip | CPT/HCPCS: 99214 ==

== ENCOUNTER → 2023-09-07 10:58 | Outpatient (BNVA) | payer MEDICARE, SELFPAY | PROVIDERS: PCP Family Medicine; Visit Provider Anesthesiology Pain Medicine | DX: G89.29 Other chronic pain; M51.16 Intervertebral disc disorders with radiculopathy, lumbar region; M47.816 Spondylosis without myelopathy or radiculopathy, lumbar region; M25.551 Pain in right hip; M25.552 Pain in left hip; M54.2 Cervicalgia | CPT/HCPCS: 99214 ==

== ENCOUNTER → 2023-09-14 11:25 | Outpatient (BNVA) | payer MEDICARE, SELFPAY | PROVIDERS: PCP Family Medicine; Visit Provider Family Medicine | DX: E11.9 Type 2 diabetes mellitus without complications; E78.2 Mixed hyperlipidemia; I10 Essential (primary) hypertension; E11.42 Type 2 diabetes mellitus with diabetic polyneuropathy; R30.0 Dysuria | CPT/HCPCS: 80053; 80061; 81000; 83036; 84443; 85025 ==

== ENCOUNTER → 2023-12-08 11:09 | Outpatient (BNVA) | payer MEDICARE, SELFPAY | PROVIDERS: PCP Family Medicine; Visit Provider Anesthesiology Pain Medicine | DX: M54.2 Cervicalgia; G89.29 Other chronic pain; M51.16 Intervertebral disc disorders with radiculopathy, lumbar region; M47.816 Spondylosis without myelopathy or radiculopathy, lumbar region; M16.11 Unilateral primary osteoarthritis, right hip | CPT/HCPCS: 99214 ==

== ENCOUNTER → 2023-12-17 11:36 | Outpatient (BNVA) | payer MEDICARE, SELFPAY | PROVIDERS: PCP Family Medicine; Visit Provider Family Medicine | DX: I10 Essential (primary) hypertension (principal); E78.2 Mixed hyperlipidemia; E11.42 Type 2 diabetes mellitus with diabetic polyneuropathy; M54.9 Dorsalgia, unspecified | CPT/HCPCS: 80053; 80061; 81000; 83036; 84443; 85025 ==

== ENCOUNTER → 2024-04-25 10:55 | Outpatient (BNVA) | payer MEDICARE, SELFPAY | PROVIDERS: PCP Family Medicine; Visit Provider Nurse Practitioner Family | DX: Z12.5 Encounter for screening for malignant neoplasm of prostate (principal); E11.42 Type 2 diabetes mellitus with diabetic polyneuropathy; E78.2 Mixed hyperlipidemia | CPT/HCPCS: 80053; 80061; 83036; 84443; 85025; G0103 ==

== ENCOUNTER → 2024-07-19 08:38 | Outpatient (BNVA) | payer MEDICARE, SELFPAY | PROVIDERS: PCP Family Medicine; Visit Provider Anesthesiology Pain Medicine | DX: M54.50 Low back pain, unspecified; M54.2 Cervicalgia; G89.29 Other chronic pain; M47.816 Spondylosis without myelopathy or radiculopathy, lumbar region; M51.16 Intervertebral disc disorders with radiculopathy, lumbar region; M25.551 Pain in right hip | CPT/HCPCS: 99214 ==

== ENCOUNTER → 2024-10-19 12:09 | Outpatient (BNVA) | payer MEDICARE, SELFPAY | PROVIDERS: PCP Nurse Practitioner Family; Visit Provider Nurse Practitioner Family | DX: I10 Essential (primary) hypertension (principal); M51.17 Intervertebral disc disorders with radiculopathy, lumbosacral region; E11.9 Type 2 diabetes mellitus without complications | CPT/HCPCS: 80053; 80061; 84443; 85025 ==

== ENCOUNTER → 2024-10-25 10:04 | Outpatient (BNVA) | payer MEDICARE, SELFPAY | PROVIDERS: PCP Nurse Practitioner Family; Visit Provider Anesthesiology Pain Medicine | DX: M54.9 Dorsalgia, unspecified (principal); M54.50 Low back pain, unspecified; M54.2 Cervicalgia; G89.29 Other chronic pain; M51.16 Intervertebral disc disorders with radiculopathy, lumbar region; M25.551 Pain in right hip; M47.26 Other spondylosis with radiculopathy, lumbar region | CPT/HCPCS: 99214 ==

== ENCOUNTER → 2025-01-18 11:01 | Outpatient (BNVA) | payer MEDICARE, SELFPAY | PROVIDERS: PCP Nurse Practitioner Family; Visit Provider Nurse Practitioner Family | DX: E11.42 Type 2 diabetes mellitus with diabetic polyneuropathy (principal); I10 Essential (primary) hypertension; E78.2 Mixed hyperlipidemia | CPT/HCPCS: 80053; 80061; 83036; 84443; 85025 ==

== ENCOUNTER → 2025-04-19 11:55 | Outpatient (BNVA) | payer MEDICARE, SELFPAY | PROVIDERS: PCP Nurse Practitioner Family; Visit Provider Nurse Practitioner Family | DX: I10 Essential (primary) hypertension (principal); R53.83 Other fatigue; Z12.5 Encounter for screening for malignant neoplasm of prostate; E11.42 Type 2 diabetes mellitus with diabetic polyneuropathy; Z72.0 Tobacco use | CPT/HCPCS: 80053; 80061; 82306; 82607; 83036; 84443; 85025; G0103 ==

== ENCOUNTER → 2025-05-01 12:51 | Outpatient (BNVA) | payer MEDICARE, SELFPAY | PROVIDERS: PCP Nurse Practitioner Family; Visit Provider Anesthesiology Pain Medicine | DX: M51.16 Intervertebral disc disorders with radiculopathy, lumbar region (principal); M47.816 Spondylosis without myelopathy or radiculopathy, lumbar region; M54.2 Cervicalgia; G89.29 Other chronic pain; M25.551 Pain in right hip | CPT/HCPCS: 99214 ==

== ENCOUNTER → 2025-05-10 12:53 | Outpatient (BNVA) | payer MEDICARE, SELFPAY | PROVIDERS: PCP Nurse Practitioner Family; Visit Provider Anesthesiology Pain Medicine | DX: M79.18 Myalgia, other site (principal) | CPT/HCPCS: 20553; 99214; J1010; J3490 ==